=== PATIENT | female | born 1985 | race Asian ===

== ENCOUNTER 2017-05-31 11:05 | Inpatient (IN) | payer BC ==
[~2017-05-31] VITALS: Ht 160 cm; Wt 94.3 kg
[2017-05-31] MEDS: OXYTOCIN 20 UNITS in LACTATED RINGERS 1,000 ML IV SCH ×4 (04:45→20:36)
[2017-05-31] MEDS ORDERED: LACTATED RINGERS 1,000 ML IV SCH (11:38)
[2017-05-31] MEDS ORDERED: OXYTOCIN 10 UNITS/ML VIAL IM SCH (11:40)
[2017-05-31] MEDS ORDERED: PROMETHAZINE 25 MG/ML VIAL IVP PRN (11:40)
[2017-05-31] MEDS ORDERED: MISOPROSTOL 25 MCG TAB VG ONE (11:40)
[2017-05-31] MEDS ORDERED: NALBUPHINE HYDROCHLORIDE 10 MG/ML VIAL IVP PRN (11:40)
[2017-05-31] MEDS ORDERED: CARBOPROST 250 MCG/ML AMP IM PRN (11:40)
[2017-05-31] MEDS ORDERED: METHYLERGONOVINE 0.2 MG/ML AMP IM PRN ×2 (11:40→16:00)
[2017-05-31] MEDS ORDERED: AMPICILLIN 2,000 MG in NACL 0.9% MINI-BAG PLUS 100 ML IV SCH (11:40)
[2017-05-31] MEDS ORDERED: PREN-380 PO (11:53)
[2017-05-31] MEDS ORDERED: FERR324T11 PO (11:53)
[2017-05-31 11:58] VITALS: BP 112/65
[2017-05-31] MEDS ORDERED: AMPICILLIN 1,000 MG in NACL 0.9% MINI-BAG PLUS 50 ML IV SCH (12:00)
[2017-05-31] MEDS ORDERED: TERBUTALINE 1 MG/ML VIAL SUBQ ONE (12:11)
[2017-05-31 12:43] LABS: BASOPHILS # (AUTO) 0.1 K/uL (0.00-0.22); BASOPHILS % (AUTO) 0.8 % (0.0-2.0); EOSINOPHILS # (AUTO) 0.1 K/uL (0-0.4); EOSINOPHILS % (AUTO) 0.6 % (0.0-4.0); HEMATOCRIT 30.8 % (36-48); LYMPHOCYTES # (AUTO) 2.3 K/uL (2.5-16.5); LYMPHOCYTES % (AUTO) 25.8 % (20.5-51.1); MEAN CORPUSCULAR HEMOGLOBIN 26 pg (27-31); MEAN CORPUSCULAR HGB CONC 33 g/dL (33-37); MEAN CORPUSCULAR VOLUME 81 fL (80-94); MONOCYTES # (AUTO) 0.7 K/uL (0.8-1.0); MONOCYTES % (AUTO) 7.5 % (1.7-9.3); NEUTROPHILS # (AUTO) 5.6 K/uL (1.8-7.7); NEUTROPHILS % (AUTO) 65.3 % (42.2-75.2); PLATELET COUNT (AUTO) 232 K/uL (140-450); RED BLOOD CELL COUNT(AUTO) 3.79 MIL/uL (4.20-5.40); RED CELL DISTRIBUTION WIDTH 14.8 % (11.6-13.7); WHITE BLOOD COUNT (AUTO) 8.8 K/uL (4.8-10.8)
[2017-05-31 12:55] LABS: APPEARANCE,URINE HAZY (CLEAR); BILIRUBIN,URINE NEGATIVE (NEGATIVE); BLOOD, URINE NEGATIVE (NEGATIVE); COLOR,URINE YELLOW (YELLOW); LEUKOCYTE ESTERASE ,URINE 1+ (NEGATIVE); NITRITE, URINE NEGATIVE (NEGATIVE); PH,URINE 6.5 (5.0-9.0); UGLUCOSE NEGATIVE (NEGATIVE)
[2017-05-31 12:57] LABS: ANION GAP 8.3 (8-16); CARBON DIOXIDE 26.4 mmol/L (21-32); CREATININE 0.6 mg/dL (0.6-1.3); POTASSIUM 3.7 mmol/L (3.5-5.1)
[2017-05-31 13:03] LABS: ALBUMIN 2.8 g/dL (3.4-5.0); TOTAL BILIRUBIN 0.3 mg/dL (0.0-1.0)
[2017-05-31 13:08] LABS: RBC,URINE 0-5 (RARE) /HPF (0-5)
[2017-05-31] MEDS ORDERED: AMPICILLIN 2,000 MG VIAL ONE (13:36)
[2017-05-31] MEDS ORDERED: MISOPROSTOL 25 MCG TAB ONE (13:37)
[2017-05-31] MEDS ORDERED: CITRIC ACID/SODIUM CITRATE 30 ML UDC PO SCH (14:30)
[2017-05-31] MEDS ORDERED: TRIAMCINOLONE 40 MG/ML 5ML VIAL ONE (15:35)
[2017-05-31] MEDS ORDERED: OXYTOCIN 10 UNITS/ML VIAL ONE ×3 (15:35→20:36)
[2017-05-31] MEDS ORDERED: METHYLERGONOVINE 0.2 MG/ML AMP ONE (15:35)
[2017-05-31] MEDS ORDERED: MIDAZOLAM 2 MG/2 ML VIAL ONE ×2 (15:45→15:51)
[2017-05-31] MEDS ORDERED: ONDANSETRON 4 MG/2 ML VIAL ONE (15:45)
[2017-05-31] MEDS ORDERED: ceFAZolin 1,000 MG VIAL ONE (15:45)
[2017-05-31] MEDS ORDERED: BUPIVACAINE-MPF 0.75% 10 ML VIAL INJ ONE (15:45)
[2017-05-31] MEDS ORDERED: ePHEDrine 50 MG/ML VIAL ONE (15:45)
[2017-05-31] MEDS ORDERED: fentaNYL 0.05 MG/ML VIAL ONE (15:51)
[2017-05-31] MEDS ORDERED: MORPHINE PRES FREE 10 MG/10 ML AMP IV ONE (15:52)
[2017-05-31] MEDS ORDERED: KETAMINE 500 MG/5 ML VIAL ONE (15:52)
[2017-05-31] MEDS ORDERED: IBUPROFEN 800 MG TAB PO PRN (16:00)
[2017-05-31] MEDS ORDERED: TRIMETHOBENZAMIDE 200 MG/2 ML SYR IM PRN (16:00)
[2017-05-31] MEDS ORDERED: oxyCODONE/APAP 5/325 MG 1 TAB TAB PO PRN (16:00)
[2017-05-31] MEDS ORDERED: TEMAZEPAM 15 MG CAP PO PRN (16:00)
[2017-05-31] MEDS ORDERED: MEASLES, MUMPS, AND RUBELLA 1 VIAL SQVAC PRN (16:00)
[2017-05-31] MEDS ORDERED: HYDROcodone/APAP 5/325 MG 1 TAB TAB PO PRN (16:00)
[2017-05-31] MEDS ORDERED: SIMETHICONE 80 MG TAB.CHEW PO PRN (16:00)
[2017-05-31] MEDS ORDERED: KETOROLAC 30 MG/ML VIAL IVP PRN (16:25)
[2017-05-31] MEDS ORDERED: ONDANSETRON 4 MG/2 ML VIAL IVP PRN (16:25)
[2017-05-31] MEDS ORDERED: diphenhydrAMINE 50 MG/ML VIAL IVP PRN (16:25)
[2017-05-31] MEDS ORDERED: DOCUSATE SOD/SENNA 50/8.6 MG 1 TAB PO SCH (21:00)
[2017-06-01] MEDS ORDERED: OXYTOCIN 10 UNITS/ML VIAL ONE (04:26)
[2017-06-01 06:41] LABS: BASOPHILS # (AUTO) 0.1 K/uL (0.00-0.22); BASOPHILS % (AUTO) 0.5 % (0.0-2.0); EOSINOPHILS # (AUTO) 0.1 K/uL (0-0.4); EOSINOPHILS % (AUTO) 0.6 % (0.0-4.0); HEMATOCRIT 27.3 % (36-48); HEMOGLOBIN 8.9 g/dL (12.0-16.0); LYMPHOCYTES # (AUTO) 1.1 K/uL (2.5-16.5); LYMPHOCYTES % (AUTO) 8.6 % (20.5-51.1); MEAN CORPUSCULAR HEMOGLOBIN 27 pg (27-31); MEAN CORPUSCULAR HGB CONC 33 g/dL (33-37); MEAN CORPUSCULAR VOLUME 82 fL (80-94); MONOCYTES # (AUTO) 0.9 K/uL (0.8-1.0); MONOCYTES % (AUTO) 6.9 % (1.7-9.3); NEUTROPHILS % (AUTO) 83.4 % (42.2-75.2); PLATELET COUNT (AUTO) 191 K/uL (140-450); RED BLOOD CELL COUNT(AUTO) 3.32 MIL/uL (4.20-5.40); RED CELL DISTRIBUTION WIDTH 14.9 % (11.6-13.7); WHITE BLOOD COUNT (AUTO) 13.2 K/uL (4.8-10.8)
[2017-06-01] MEDS: OXYTOCIN 20 UNITS in LACTATED RINGERS 1,000 ML IV SCH (14:14)
--- NOTE | 2017-06-02 10:04 | NUR ---
PATIENT HAS BEEN SCREENED AND CATEGORIZED LOW NUTRITION RISK. PATIENT WILL BE SEEN WITHIN 7 DAYS OF ADMISSION. 06/06/[address]
[2017-06-02 12:15] LABS: HEPATITIS B SURFACE ANTIGEN Negative (Negative)
[2017-06-03] MEDS ORDERED: IBUP-2213 PO (11:32)
[2017-06-03] MEDS ORDERED: CEPH250C16 PO (11:37)
[2017-06-03] MEDS ORDERED: BISA-213 RC (11:39)
== END 2017-06-03 15:45 | disposition home or self-care (01) | DRG 766 ==
LOC: MLD 11:05 → MFCC 17:36
PROVIDERS: ADMIT Obstetrics & Gynecology; ATTEND Obstetrics & Gynecology
PROC: 3E0234Z Introduction of Serum, Toxoid and Vaccine into Muscle, Percutaneous Approach (ICD-10-PCS; 2017-05-31)
PROC: 10D00Z1 Extraction of Products of Conception, Low, Open Approach (ICD-10-PCS; principal; 2017-05-31 15:30)
DX: O76 Abnormality in fetal heart rate and rhythm complicating labor and delivery (principal); Z23 Encounter for immunization; Z37.0 Single live birth; Z3A.00 Weeks of gestation of pregnancy not specified
CPT/HCPCS: 36415; 51702; 59200; 80053; 81001; 85025; 86592; 86762; 86886; 86900; 86901; 87086; 87340; 87653-90; J0290; J0690; J2210; J2250; J2270; J2405; J2590; J3010; J3105; J3301; J3490; J7060; J7120